=== PATIENT | female | born 1975 | race Caucasian/White ===

== ENCOUNTER 2019-05-16 08:53 | Emergency (ER) | payer MEDICARE, SELFPAY ==
[2019-05-16 08:54] VITALS: BP 119/77; PULSE 105; RESP 18; TEMP 38.9; O2SAT 91; BMI 28.3
--- NOTE | 2019-05-16 09:08 | ED.VISSUMM ---
- ER Visit Summary Date of Service: 05/16/19 Chief Complaint: [Flu symptoms] History of Present Illness: The patient is a 44 F [presents the emergency department with symptoms that started yesterday. Patient complains of a sore throat, cough, fever, and body aches. Patient complains of a headache. Patient states that she is in school and lots of her classmates have been ill and been wearing masks. Patient also states that she has this small boil in her left upper thigh that she is had for several weeks that opened up and drained and then started increasing in size again but now it starting to get better again and she has less pain. Patient's fever at home up to 102. No urinary symptoms. Cough is mostly nonproductive although occasionally she will bring up some cox phlegm. Patient is a smoker.] Physical Examination: [HEENT-PERRLA, EOMI. Cranial nerves II through XII grossly intact. TMs clear. Mucous membranes moist. No adenopathy. Cardiovascular-regular rate and rhythm without murmur or ectopy Lungs-clear to auscultation, chest wall stable without crepitus or subcu emphysema Abdomen-normoactive bowel sounds, soft, nontender, no rebound or rigidity, no peritoneal signs. Extremities-intact ?4, normal range of motion, normal pulses, atraumatic. Left groin-there is a small soft tissue swelling measuring approximately 1 cm in diameter without any fluctuance. There is no erythema or cellulitis noted. Minimal discomfort on palpation. I feel this is a resolving soft tissue abscess.] Test Results: [None indicated] Emergency Department Course and Treatment: [Patient was treated with ibuprofen and Tamiflu.] Treatment Plan: [We will be treated with Tamiflu and Tessalon Perles. Patient advised to use ibuprofen or Tylenol for discomfort.] Disposition: [Discharged home in stable condition] Impression: [Influenza] This note was generated with [employer] dictation software. It may contain incorrect words, spelling, and punctuation that were not noted in review of the chart prior to signing ED Disposition - Plan for ED Patient: Referrals: Nilson Frazier MD [Primary Care Provider] -
--- NOTE | 2019-05-16 09:10 | ED.DEP ---
ED Disposition - Plan for ED Patient: Instructions: Influenza Prescriptions: Oseltamivir Phosphate [Tamiflu] 75 mg PO BID #10 cap Prescription Printed Benzonatate [Tessalon Perle] 200 mg PO TID PRN PRN #20 cap PRN Reason: Cough Prescription Printed Referrals: Nilson Frazier MD [Primary Care Provider] - 5-7 Days
[2019-05-16] MEDS: Oseltamivir Phosphate 75 MG Capsule PO (09:22)
[2019-05-16] MEDS: Ibuprofen 400 MG Tablet 800 MG PO (09:22)
[2019-05-16 09:26] VITALS: PULSE 105; RESP 17; TEMP 39.2
== END 2019-05-16 09:29 | disposition home or self-care (01) ==
LOC: ED 09:12
PROVIDERS: Emergency Provider Emergency Medicine; PCP Family Medicine
DX: J11.1 Influenza due to unidentified influenza virus with other respiratory manifestations (principal); F17.200 Nicotine dependence, unspecified, uncomplicated
CPT/HCPCS: 99283

== ENCOUNTER 2021-02-19 15:45 | Inpatient (IN) | payer MEDICARE, SELFPAY ==
[2021-02-19] VITALS (12 sets, daily range): BP systolic 95–129; BP diastolic 60–94; PULSE 93–113; RESP 14–26; TEMP 36.1–36.8; O2SAT 77–98; BMI 30.4
--- NOTE | 2021-02-19 16:25 | RAD_ITS ---
STUDY: X-RAY CHEST REASON FOR EXAM: Female, 45 years old. cough sob TECHNIQUE: Frontal portable view of the chest COMPARISON: 16 March 2017 FINDINGS: The lungs are clear and expanded. There is no demonstrated pleural abnormality. Normal size heart. Normal mediastinum and deonna. Normal visualized pulmonary arteries. Normal visualized aortic arch and descending thoracic aorta. Normal visualized thoracic spine. Normal visualized ribs, clavicles, and shoulders. There is no demonstrated abnormality of the visualized soft tissue structures of the upper abdomen. RAD/Chest 1 View (Portable) IMPRESSION: Normal x-ray examination of the chest. Electronically Signed: Javon Vargas MD at 16:49 EST Tel , Service support ,
--- NOTE | 2021-02-19 16:42 | EX.ED.VIS.UR ---
HPI HPI - URI History of Present Illness Chief Complaint: Cough Informant: patient Onset/Context/Timing Onset: Days (2-3) Context: Gradual Onset Timing: Continuous Quality: Nonproductive cough Location: Chest Current Severity: Moderate Maximum Severity: Moderate Worsened by: - (Exertion, coughing) Relieved by: - (Rest) Associated Symptoms Associated Symptoms: Positive for Nasal Congestion, Myalgias, Shortness of Breath (Mild due to wheezing with exertion) and Nonproductive cough; Negative for Headache, Nausea, Vomiting, Diarrhea, Chest Pain and Hemoptysis Narrative Narrative: Patient having chills but no fevers, cough for the last couple days feels like she has bronchitis. She is a smoker. 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 She was vaccinated against Covid with the Moderna vaccines, last of the 2 injections was this past summer she thinks in August, she has not had a booster. No contact with anyone with Covid that she knows of. She denies any significant dyspnea, but on the way back to her room from triage here in the emergency department, her oxygen saturations went down to 73%. She denies any history of DVT or PE or leg pain or swelling recently. No recent travel, immobilization, hospitalization, surgery. ROS [facility] ED Constitutional Constitutional ED: Reports body ache(s) and chills; Denies fever(s) or headache(s) Eyes Eyes: Denies change in vision or diplopia ENT ENT ED: Reports nasal congestion; Denies rhinorrhea or sore throat Cardiovascular Cardiovascular: Denies chest pain or palpitations Respiratory/Chest Respiratory/Chest: Reports cough and dyspnea on exertion Gastrointestinal Gastrointestinal: Denies abdominal pain, diarrhea, nausea or vomiting Genitourinary Genitourinary ED: Denies dysuria or hematuria Musculoskeletal Musculoskeletal: Denies back pain or neck pain Integumentary Denies abscess or rash Neurologic Neurologic: Denies headache(s), paresthesias or weakness Psychiatric Psychiatric: Denies anxiety or suicidal thoughts PFSH PFSH Medical History Depression H. pylori infection Smoker Home Medications albuterol sulfate 1 - 2 puff INHALATION Q4H PRN PRN #1 inhaler 03/16/17 [Rx Last Taken Unknown] gabapentin 1 tab PO BID 03/16/17 [History Last Taken Unknown] doxycycline monohydrate 100 mg PO BID 02/19/21 [History Last Taken Unknown] methadone 80 mg PO DAILY 02/19/21 [History Last Taken Unknown] metronidazole 500 mg PO 4X/DAY 02/19/21 [History Last Taken Unknown] pantoprazole PO 02/19/21 [History Last Taken Unknown] Allergy/AdvReac Type Severity Reaction Status Date / Time citalopram hydrobromide AdvReac Vomiting Verified 02/19/21 15:49 [From Celexa] nitrofurantoin AdvReac Diarrhea Verified 02/19/21 15:49 [From Macrobid] nitrofurantoin AdvReac Diarrhea Verified 02/19/21 15:49 macrocrystalline [From Macrobid] sertraline HCl [From Zoloft] AdvReac Vomiting Verified 02/19/21 15:49 sulfamethoxazole AdvReac Diarrhea Verified 02/19/21 15:49 [From Bactrim] trimethoprim [From Bactrim] AdvReac Diarrhea Verified 02/19/21 15:49 Surgical History History of cholecystectomy Social History Smoking Status: Current every day smoker tobacco type: cigarettes EXAM Physical Exam Const Vital Signs: 02/19/21 15:46 02/19/21 16:03 02/19/21 16:12 Temperature 98.3 F 98.3 F Temperature Source Temporal Temporal Pulse Rate 99 93 Respiratory Rate 18 17 Respiratory Effort Non-Labored Short of Breath Respiratory Depth Normal Respiratory Pattern Normal Blood Pressure 118/77 95/65 Blood Pressure Mean 90 75 Pulse Ox 84 97 96 Oxygen Delivery Method Room Air Nasal Cannula Nasal Cannula Oxygen Flow Rate (L/min) 3 3 02/19/21 17:00 02/19/21 17:19 02/19/21 18:25 Temperature 96.9 F L Temperature Source Temporal Pulse Rate 96 102 H 98 Respiratory Rate 16 22 H 20 H Respiratory Effort Respiratory Depth Respiratory Pattern Blood Pressure 119/76 102/60 Blood Pressure Mean 90 74 Pulse Ox 93 97 94 Oxygen Delivery Method Nasal Cannula Nasal Cannula Nasal Cannula Oxygen Flow Rate (L/min) 3 3 3 02/19/21 20:14 02/19/21 20:42 02/19/21 21:01 Temperature 98.3 F Temperature Source Temporal Pulse Rate 94 111 H 113 H Respiratory Rate 14 20 H 26 H Respiratory Effort Respiratory Depth Respiratory Pattern Normal Blood Pressure 129/94 H 101/76 Blood Pressure Mean 105 84 Pulse Ox 85 91 Oxygen Delivery Method Nasal Cannula Nasal Cannula Oxygen Flow Rate (L/min) 3 2 Positive well nourished and well developed Constitutional Narrative: Well-appearing, no distress, conversive in full sentences General Appearance ED: well developed and NAD HEENT Reports moist mucous membranes normocephalic and atraumatic Eyes PERRL and EOMs intact bilaterally Neck full ROM and supple Resp normal respiratory effort Resp Narrative: Expiratory wheezing throughout, no other adventitious breath sounds. Cardio regular rate, regular rhythm and no murmurs Rate: Negative for tachycardic GI non-tender and non-distended Auscultation: normoactive bowel sounds Palpation: soft Back/Spine no CVA tenderness General Back: other FROM Extremity normal to inspection and no calf tenderness General Extremety ED: Negative for edema, pulses abnormal or tenderness General Extremity: Negative for edema or pulses abnormal Neuro oriented x3, CN's II-XII intact bilaterally and no sensory deficits noted Sensorium / Orientation: awake and alert Motor Exam: strength 5/5 throughout Skin no rashes or lesions noted and no wounds MDM MDM MDM Narrative Medical decision making narrative: Initially obtained a Covid swab and a chest x-ray, both of which are normal/negative. However after duo nebulizer treatment taking the patient off of oxygen, she still desats and actually with walking at 1 point she was 56% on room air. When she got back to the room she was in the 80s, and required oxygen to get her back into the 90s, 4 L. She indicates this has been an issue before, especially when she had her EGD diagnosing H. pylori infection for which she has been on antibiotics for the past month or 2 and Pepto-Bismol. She still smokes and has never been referred to a revenue field auditor. I performed more of a work-up, including a D-dimer, labs, cardiac work-up, all of which was normal except for the D-dimer so she underwent CT angiography of the chest, the results are below essentially unremarkable except for some scarring/atelectasis and no pneumonia or pulmonary embolus. I then gave her a stacked course of albuterol, she was resting on room air at 79%. It took 3 L to get her above 90% without ambulation. I advised the patient to stay in the hospital, I cannot send her home on oxygen from the emergency department, she was reluctant but amenable. I question whether she could have undiagnosed COPD. Started her on steroids with Solu-Medrol IV and discussed with hospitalist. Lab Data Attestation: I reviewed the patient's lab results. Labs: Laboratory Results - last 24 hr 02/19/21 02/19/21 02/19/21 18:05 18:05 18:05 WBC 6.4 RBC 4.71 Hgb 14.7 Hct 44.7 MCV 94.9 MCH 31.2 MCHC 32.9 RDW Std Deviation 46.8 H RDW Coeff of Lb 13.3 Plt Count 155 MPV 9.8 Immature Gran % (Auto) 0.300 Neut % (Auto) 80.0 H Lymph % (Auto) 13.1 L [place] % (Auto) 6.3 Eos % (Auto) 0.0 Baso % (Auto) 0.3 Absolute Neuts (auto) 5.1 Absolute Lymphs (auto) 0.83 Nucleated RBC % 0 D-Dimer Quant (PE/DVT) Cancelled Sodium Potassium Chloride Carbon Dioxide Anion Gap BUN Creatinine Estim Creat Clear Calc Est GFR (MDRD) Af Amer Est GFR (MDRD) Non-Af BUN/Creatinine Ratio Glucose Calcium Troponin I High Sens B-Natriuretic Peptide 84.3 02/19/21 02/19/21 18:05 19:14 WBC RBC Hgb Hct MCV MCH MCHC RDW Std Deviation RDW Coeff of Lb Plt Count MPV Immature Gran % (Auto) Neut % (Auto) Lymph % (Auto) [place] % (Auto) Eos % (Auto) Baso % (Auto) Absolute Neuts (auto) Absolute Lymphs (auto) Nucleated RBC % D-Dimer Quant (PE/DVT) 0.59 H* Sodium 138 Potassium 4.2 Chloride 101 Carbon Dioxide 33.0 H Anion Gap 4 L BUN 6 L Creatinine 0.87 Estim Creat Clear Calc 60.32 Est GFR (MDRD) Af Amer 90 Est GFR (MDRD) Non-Af 74 BUN/Creatinine Ratio 6.9 L Glucose 102 Calcium 8.9 Troponin I High Sens 5 B-Natriuretic Peptide Radiography Diagnostic Testing: Clinical Impression(s) from Imaging Studies Chest X-Ray 02/19/21 16:25 IMPRESSION: Normal x-ray examination of the chest. Electronically Signed: Javon Vargas MD at 16:49 EST Tel , Service support , Chest CTA 02/19/21 18:46 IMPRESSION: No demonstrated pulmonary embolism or arterial dissection. Probable peripheral scarring/atelectasis of the right middle lobe and lingular segment. Electronically Signed: Candido Lopez DO at 19:38 EST Tel [phone], Service support , Discharge Plan Dx/Rx/DC Orders Clinical Impression: Acute bronchitis, Hypoxemia Disposition Disposition: Acute Care Hospital [facility] Discharge Date/Time: 02/19/21 22:23
[2021-02-19] MEDS: Ipratropium/Albuterol Sulfate 3 ML AMPUL.NEB INHALATION (17:17)
[2021-02-19 18:25] LABS: Absolute Lymphocyte Count 0.83 X10^3/uL (0.83-4.51); Absolute Neutrophil Count 5.1 X10^3/uL (2.0-7.7); Basophil# 0.02 X10^3/uL; Basophil% 0.3 % (0-1); Hematocrit 44.7 % (37-47); Hemoglobin 14.7 g/dL (12.0-15.0); Lymphocyte # 0.83 X10^3/ul (0.83-4.51); Lymphocyte % 13.1 % (19-41); Mean Corp Hgb Conc 32.9 g/dL (32-36); Mean Corpuscular Hgb 31.2 pg (27.0-32.0); Mean Corpuscular Volume 94.9 fL (81-99); Mean Platelet Vol. 9.8 fl (6.2-12.0); Monocyte% 6.3 % (0-10); NRBC Flagged by Analyzer 0 % (0-5); Neutrophil # 5.08 X10^3/uL (2.7-7.7); Platelet Count 155 K/mm3 (150-450); RBC Distribution Width CV 13.3 % (11.6-14.6); RBC Distribution Width SD 46.8 fl (35.1-43.9); Red Blood Count 4.71 M/mm3 (4.2-5.4); White Blood Count 6.4 K/mm3 (4.4-11.0)
[2021-02-19] MEDS: 0.9% Normal Saline 1,000 ML 999 ML IV (18:26)
[2021-02-19 18:36] LABS: Anion Gap 4 (5-15); BUN 6 mg/dL (7-18); BUN/Creat Ratio 6.9 RATIO (10-20); Calcium,Total 8.9 mg/dL (8.5-10.1); Chloride 101 mmol/L (98-107); Creatinine, Serum 0.87 mg/dL (0.55-1.02); EST Glomerular Filtration Rate 74 mL/min (>60); Est Glom Filt Rate - Afr Amer 90 mL/min (>60); Estimated Creatinine Clearance 60.32 ml/min; Glucose 102 mg/dL (74-106); Potassium 4.2 mmol/L (3.5-5.1); Sodium Level 138 mmol/L (136-145); Troponin-I HS 5 pg/mL (3.0-54.0)
--- NOTE | 2021-02-19 18:46 | CT_ITS ---
STUDY: CTA CHEST REASON FOR EXAM: Female, 45 years old. Cough, sob, hypoxemia, elevated d-dimer -- wait for labs please RADIATION DOSAGE (If Supplied By Facility): CTDIvol = ( 13.56 ) mGy, DLP = ( 417.91 ) mGycm TECHNIQUE: The examination was performed with the intravenous administration of IV 75mL Isovue-370. Post-processing of the angiographic images was performed, with multiplanar reformation and 3D reconstruction. Individualized dose optimization techniques were used for this CT. COMPARISON: None. FINDINGS: Normal enhancement of the main pulmonary artery and right and left pulmonary arteries. Normal enhancement of the bilateral peripheral pulmonary arteries. There is no demonstrated pulmonary embolism. Normal thoracic aorta and visualized great vessels. There is no demonstrated aortic dissection. Normal heart and pericardium. Normal mediastinum. Normal hilar regions. Normal visualized trachea and bronchi. The lungs are well expanded. Probable peripheral scarring/atelectasis of the right middle lobe and lingular segment. Normal pleura. Normal chest wall structures. Normal osseous structures. Normal visualized upper abdomen. CT/CTA Chest W/WO Contrast IMPRESSION: No demonstrated pulmonary embolism or arterial dissection. Probable peripheral scarring/atelectasis of the right middle lobe and lingular segment. Electronically Signed: Candido Lopez DO at 19:38 EST Tel [phone], Service support ,
[2021-02-19 19:05] LABS: BNP,B-Type NATRIURETIC PEPTIDE 84.3 pg/mL (0-100)
[2021-02-19 19:54] LABS: D-Dimer Quantitative (DVT/PE) 0.59 FEU/ug/m (0.27-0.49)
[2021-02-19] MEDS: Albuterol 2.5 MG/3 ML VIAL.NEB. INHALATION ×3 (20:11)
[2021-02-19] MEDS: MethylPREDNISolone 125 MG/2 ML Vial IV (20:28)
--- NOTE | 2021-02-19 20:44 | ED.RN ---
pulse ox 83%, placed on 2l nc,presently 90.
--- NOTE | 2021-02-19 22:14 | PCM.HP.STD ---
HPI - General General Date of Admission: 02/19/21 HPI Narrative AGUSTIN HEARN, is a 45 F with a significant history of H. pylori infection; IBS; depression; tobacco addiction on methadone; tobacco abuse who presents at the emergency department with a 2-day history of progressively worsening productive cough. The patient reports a temperature of 99.9-1 02 Fahrenheit. However she reported that the battery in the home temperature was low. She reports chills. At the emergency department with ambulation patient oxygen saturation at room air was about 59%. A decision was made for patient to stay at hospital [facility] Medical History Depression H. pylori infection Smoker Home Medications albuterol sulfate 1 - 2 puff INHALATION Q4H PRN PRN #1 inhaler 03/16/17 [Rx Last Taken Unknown] doxycycline monohydrate 100 mg PO BID 02/19/21 [History Last Taken Unknown] methadone 80 mg PO DAILY 02/19/21 [History Last Taken Unknown] metronidazole 500 mg PO 4X/DAY 02/19/21 [History Last Taken Unknown] pantoprazole PO 02/19/21 [History Last Taken Unknown] Allergy/AdvReac Type Severity Reaction Status Date / Time citalopram hydrobromide AdvReac Vomiting Verified 02/19/21 15:49 [From Celexa] nitrofurantoin AdvReac Diarrhea Verified 02/19/21 15:49 [From Macrobid] nitrofurantoin AdvReac Diarrhea Verified 02/19/21 15:49 macrocrystalline [From Macrobid] sertraline HCl [From Zoloft] AdvReac Vomiting Verified 02/19/21 15:49 sulfamethoxazole AdvReac Diarrhea Verified 02/19/21 15:49 [From Bactrim] trimethoprim [From Bactrim] AdvReac Diarrhea Verified 02/19/21 15:49 Family History (Updated 02/19/21 @ 22:[address] Micah Smith MD) Other Heart disease Surgical History (Updated 02/19/21 @ 22:[address] Micah Smith MD) H/O shoulder surgery History of cholecystectomy History of surgery on arm Social History Smoking Status: Current every day smoker tobacco type: cigarettes ROS ROS Narrative Constitutional: Reports fever and chills. Reports anorexia. Denies change in weight. Eyes: Denies blurry vision, change in eye color, change in vision, discharge from eye(s), double vision, erythema, eye pain, loss of vision or other HEENT: Denies abnormal hearing, dysphagia, ear pain, epistaxis, headache(s), hearing loss, nasal congestion, nasal discharge, post nasal drip, sinus pressure, sore throat or other Cardiovascular: Denies chest pain or palpitations. Respiratory/Chest: Reports cough. Reports phlegm production. Denies shortness of breath. Gastrointestinal: Denies abdominal pain, coffee ground emesis, constipation, diarrhea, dyspepsia, hematemesis, hematochezia, loose stools, melena, nausea, vomiting or other Genitourinary: Denies burning urination, difficulty urinating, dysuria, hematuria, nocturia, urinary frequency, urinary hesitancy, urinary incontinence, urinary urgency or other Musculoskeletal: Denies arthralgias, back pain, joint pain, joint stiffness, joint swelling, myalgias, neck pain or other Neurologic: Denies abnormal gait, abnormal speech, confusion, disequilibrium, dizziness, focal weakness, headache(s), numbness, paresthesias, seizure-like activity, seizures, syncope, tingling, tremor(s) or other Psychiatric: Denies anxiety, depression, homicidal ideation, suicidal ideation or other Endocrinology: Denies change in body appearance, cold intolerance, excessive sweating, heat intolerance, polydipsia, polyuria or other Hematologic/Lymphatic: Denies anemia, easy bleeding, easy bruising, lymphadenopathy or other Integumentary: Denies rashes Allergic/Immunologic: Denies rhinitis, hives, eczema, asthma or other Vital Signs Vital Signs Vital Signs: 02/19/21 15:46 02/19/21 16:03 02/19/21 16:12 Temperature 98.3 F 98.3 F Temperature Source Temporal Temporal Pulse Rate 99 93 Respiratory Rate 18 17 Respiratory Effort Non-Labored Short of Breath Respiratory Depth Normal Respiratory Pattern Normal Blood Pressure 118/77 95/65 Blood Pressure Mean 90 75 Pulse Ox 84 97 96 Oxygen Delivery Method Room Air Nasal Cannula Nasal Cannula Oxygen Flow Rate (L/min) 3 3 02/19/21 17:00 02/19/21 17:19 02/19/21 18:25 Temperature 96.9 F L Temperature Source Temporal Pulse Rate 96 102 H 98 Respiratory Rate 16 22 H 20 H Respiratory Effort Respiratory Depth Respiratory Pattern Blood Pressure 119/76 102/60 Blood Pressure Mean 90 74 Pulse Ox 93 97 94 Oxygen Delivery Method Nasal Cannula Nasal Cannula Nasal Cannula Oxygen Flow Rate (L/min) 3 3 3 02/19/21 20:14 02/19/21 20:42 02/19/21 21:01 Temperature 98.3 F Temperature Source Temporal Pulse Rate 94 111 H 113 H Respiratory Rate 14 20 H 26 H Respiratory Effort Respiratory Depth Respiratory Pattern Normal Blood Pressure 129/94 H 101/76 Blood Pressure Mean 105 84 Pulse Ox 85 91 Oxygen Delivery Method Nasal Cannula Nasal Cannula Oxygen Flow Rate (L/min) 3 2 Weight Weight: 73.028 kg Body Mass Index (BMI) 30.4 Physical Exam Narrative Physical exam: General: Well-nourished, well-developed. Head: Normocephalic, atraumatic, no tenderness Eyes: PERRLA, EOMI ENT, no trauma, moist mucous membranes, no rhinorrhea Neck: Nontender, full range of motion, no spinal tenderness, deformities, step-off CVS: Regular rate and rhythm. S1-S2 present. No murmur, gallop or rub. Respiratory : Wheezes. Chest wall nontender. Abdomen: Soft, nontender, nondistended, normal bowel sounds, no masses : Deferred Back: Nontender, no CVA tenderness, no midline spinal tenderness, deformities, step-offs Extremities: Nontender full range of motion, no trauma Skin: Normal color, no trauma, abrasions Neuro: Alert, oriented, cranial nerves II through XII grossly intact. Psychiatry: Normal mood. Normal affect. Not depressed. Not anxious. Results Lab / Micro Data Result Diagrams: 02/19/21 18:05 02/19/21 18:05 Labs: Laboratory Results - last 24 hr 02/19/21 18:05: D-Dimer Quant (PE/DVT) Cancelled 02/19/21 18:05: B-Natriuretic Peptide 84.3 02/19/21 18:05: WBC 6.4, RBC 4.71, Hgb 14.7, Hct 44.7, MCV 94.9, MCH 31.2, MCHC 32.9, RDW Std Deviation 46.8 H, RDW Coeff of Lb 13.3, Plt Count 155, MPV 9.8, Immature Gran % (Auto) 0.300, Neut % (Auto) 80.0 H, Lymph % (Auto) 13.1 L, [place] % (Auto) 6.3, Eos % (Auto) 0.0, Baso % (Auto) 0.3, Absolute Neuts (auto) 5.1, Absolute Lymphs (auto) 0.83, Nucleated RBC % 0 02/19/21 18:05: Sodium 138, Potassium 4.2, Chloride 101, Carbon Dioxide 33.0 H, Anion Gap 4 L, BUN 6 L, Creatinine 0.87, Estim Creat Clear Calc 60.32, Est GFR (MDRD) Af Amer 90, Est GFR (MDRD) Non-Af 74, BUN/Creatinine Ratio 6.9 L, Glucose 102, Calcium 8.9, Troponin I High Sens 5 02/19/21 19:14: D-Dimer Quant (PE/DVT) 0.59 H* Micro: Microbiology 02/19/21 16:13 Interface Orders SARS-CoV-2 Antigen (Rapid) - Final Radiology Impression Chest X-Ray 02/19/21 16:25 IMPRESSION: Normal x-ray examination of the chest. Electronically Signed: Javon Vargas MD at 16:49 EST Tel , Service support , Chest CTA 02/19/21 18:46 IMPRESSION: No demonstrated pulmonary embolism or arterial dissection. Probable peripheral scarring/atelectasis of the right middle lobe and lingular segment. Electronically Signed: Candido Lopez DO at 19:38 EST Tel [phone], Service support , Assessment & Plan Assessment/Plan (1) Acute hypoxemic respiratory failure: (2) Acute bronchitis: PLAN: Acute hypoxemic respiratory failure likely secondary to acute bronchitis. Chest x-ray was independently interpreted and agree radiologist interpretation above. Radiology impression of chest CTA is as above. Received Solu-Medrol at the emergency department and continued. Received DuoNeb at the emergency department and continue [id number]. Chest x-ray and chest CTA does not look like Covid but without definite answer will order a Covid PCR. Rapid Covid antigen was negative. We will get stat influenza screen. Placed on nasal cannula oxygen and continued. Review of CBC showed normal white counts but with neutrophilia and lymphopenia. D-dimer was elevated chest CTA is as above. CBC showed a bicarbonate of 33. Likely patient has a history of mild CO2 retention. BNP is within normal limit. H. pylori infection Continue doxycycline and metronidazole Pantoprazole continued History of drug abuse Reportedly she is in their recovery program or counseling. Reportedly she drives from with diabetes to [place] to take up 110 mg of liquid methadone during weekdays. She receives some methadone for take home on weekends.. Obtain records from methadone clinic and dose accordingly. DVT prophylaxis: Subcutaneous Lovenox ordered Charges/Coding Visit Charges Inpatient E&M: 50089 Init Hosp L2
[2021-02-19] MEDS: guaiFENesin 1,200 MG Tablet 1200 MG PO (23:22)
[2021-02-20] VITALS (10 sets, daily range): BP systolic 103–123; BP diastolic 53–65; PULSE 92–107; RESP 16–20; TEMP 36.2–36.9; O2SAT 86–98
--- NOTE | 2021-02-20 00:04 | PCS.PANDOC ---
PANDEMIC DOCUMENTATION INITIATED: Date: 11/07/2020 Time: 190
[2021-02-20] MEDS: Fluticasone 0.05% 1 SPRAY NASAL.SRY 2 SPRAY NASAL (05:26)
[2021-02-20] MEDS: 0.9% Saline Lock 10 ML Syringe IV ×3 (05:29→20:43)
[2021-02-20 06:50] LABS: Absolute Lymphocyte Count 0.71 X10^3/uL (0.83-4.51); Absolute Neutrophil Count 5.5 X10^3/uL (2.0-7.7); Basophil# 0.01 X10^3/uL; Basophil% 0.2 % (0-1); Hematocrit 42.6 % (37-47); Hemoglobin 13.9 g/dL (12.0-15.0); Lymphocyte # 0.71 X10^3/ul (0.83-4.51); Lymphocyte % 11.1 % (19-41); Mean Corp Hgb Conc 32.6 g/dL (32-36); Mean Corpuscular Hgb 30.8 pg (27.0-32.0); Mean Corpuscular Volume 94.5 fL (81-99); Mean Platelet Vol. 9.9 fl (6.2-12.0); Monocyte# 0.13 X10^3/uL; NRBC Flagged by Analyzer 0 % (0-5); Neutrophil # 5.52 X10^3/uL (2.7-7.7); Neutrophil % 86.4 % (47-70); Platelet Count 170 K/mm3 (150-450); RBC Distribution Width CV 13.4 % (11.6-14.6); RBC Distribution Width SD 46.4 fl (35.1-43.9); Red Blood Count 4.51 M/mm3 (4.2-5.4); White Blood Count 6.4 K/mm3 (4.4-11.0)
[2021-02-20] MEDS: Ipratropium/Albuterol Sulfate 3 ML AMPUL.NEB INHALATION ×4 (07:06→20:56)
[2021-02-20 07:17] LABS: Anion Gap 8 (5-15); BUN 9 mg/dL (7-18); BUN/Creat Ratio 11.6 RATIO (10-20); Calcium,Total 9.1 mg/dL (8.5-10.1); Chloride 101 mmol/L (98-107); Creatinine, Serum 0.78 mg/dL (0.55-1.02); EST Glomerular Filtration Rate 84 mL/min (>60); Est Glom Filt Rate - Afr Amer 102 mL/min (>60); Estimated Creatinine Clearance 67.28 ml/min; Glucose 146 mg/dL (74-106); Potassium 3.7 mmol/L (3.5-5.1); Sodium Level 138 mmol/L (136-145)
[2021-02-20] MEDS: Enoxaparin 40 MG/0.4 ML Syringe SC (08:44)
[2021-02-20] MEDS: metroNIDAZOLE 500 MG Tablet PO ×4 (08:44→22:54)
[2021-02-20] MEDS: guaiFENesin 1,200 MG Tablet 1200 MG PO ×2 (08:44→20:41)
[2021-02-20] MEDS: Doxycycline 100 MG CAPSULE PO ×2 (08:44→20:41)
[2021-02-20] MEDS: Pantoprazole Sodium 40 MG Tablet PO (08:44)
[2021-02-20 08:51] LABS: Procalcitonin 0.05 ng/mL (0.00-0.09)
--- NOTE | 2021-02-20 10:57 | CASEMGMT ---
ROBBIN HIGH assessment: Face to Face with patient for initial transition planning/care coordination assessment. ROBBIN HIGH introduced self and role at [facility], pt voices understanding and consents to assessment. Pt is sitting up in bed in no distress on 5L nc. Pt is A/Ox4 and answers all questions appropriately. Care providers, pharmacy, and demographics verified/updated. Presentation: Cough, chest congestion, fever Admission dx: Cough PCP: Karin Specialists: MARY Blanco Preferred Pharmacy: [facility] Insurance: [employer] Prescription Benefit: [employer] Living Will/HPOA: Pt does not have LW/HPOA set up but states has the paperwork at home. LNOK: Susana Randolph, mother; Shahid Bryant, father Living Arrangements: Pt lives alone in apartment with 8 steps and states no concerns at home. Pt states is independent with ADL's. Transportation: Pt states drives self and states no transportation concerns. DME/HHC: Pt states no current DME or need for any further DME. Pt states no preference for DME company, if qualifies for home oxygen at discharge. Pt states has had HHC in the past but has not been to SNF. Pt states no concerns with going home at time of discharge. Pt is on disability. Pt states smokes 1/2 pack cigarettes daily but does not drink ETOH. Pt states no further concerns/needs. CM to follow for home oxygen testing and any further discharge planning/needs. Advised pt to ask for CM if any further questions/concerns/needs arise, voices understanding. Pt Goal: Home Plan[place]BIN HIGH
[2021-02-20] MEDS: Methadone 10 MG Tablet 110 MG PO (11:48)
--- NOTE | 2021-02-20 11:52 | PCM.PN.HOSP ---
Documented by User: Gerardo CANAS 02/20/21 12:01 Subjective Subjective Patient is a 45-year-old female comfortably resting in a chair, alert and orient x3. Patient reports that her shortness of breath has improved from admission, however still reports yellow productive cough. Denies development of any new symptoms overnight. Does not appear in acute distress. Objective Data Objective Data Vital Signs: Vital Signs Temp Pulse Resp BP Pulse Ox 98.4 F 96 20 H 123/62 H 91 02/20/21 06:19 02/20/21 11:05 02/20/21 11:05 02/20/21 06:19 02/20/21 06:58 Oxygen Flow Rate (L/min) 5 Oxygen Delivery Method Nasal Cannula Weight: 159 lb 2.78 oz Body Mass Index (BMI) 30.0 Intake & Output: Intake and Output for Last 24 Hours 02/18/21 02/19/21 02/20/21 23:59 23:59 23:59 Intake Total 1000 / 1120 760 / 760 Balance 1000 / 1120 760 / 760 Lab / Micro Data Result Diagrams: 02/20/21 05:55 02/20/21 05:55 Labs: Laboratory Results - last 24 hr 02/19/21 18:05: D-Dimer Quant (PE/DVT) Cancelled 02/19/21 18:05: B-Natriuretic Peptide 84.3 02/19/21 18:05: WBC 6.4, RBC 4.71, Hgb 14.7, Hct 44.7, MCV 94.9, MCH 31.2, MCHC 32.9, RDW Std Deviation 46.8 H, RDW Coeff of Lb 13.3, Plt Count 155, MPV 9.8, Immature Gran % (Auto) 0.300, Neut % (Auto) 80.0 H, Lymph % (Auto) 13.1 L, [place] % (Auto) 6.3, Eos % (Auto) 0.0, Baso % (Auto) 0.3, Absolute Neuts (auto) 5.1, Absolute Lymphs (auto) 0.83, Nucleated RBC % 0 02/19/21 18:05: Sodium 138, Potassium 4.2, Chloride 101, Carbon Dioxide 33.0 H, Anion Gap 4 L, BUN 6 L, Creatinine 0.87, Estim Creat Clear Calc 60.32, Est GFR (MDRD) Af Amer 90, Est GFR (MDRD) Non-Af 74, BUN/Creatinine Ratio 6.9 L, Glucose 102, Calcium 8.9, Troponin I High Sens 5 02/19/21 19:14: D-Dimer Quant (PE/DVT) 0.59 H* 02/19/21 23:15: COVID-19 (BECKY) Not Detected 02/20/21 05:55: WBC 6.4, RBC 4.51, Hgb 13.9, Hct 42.6, MCV 94.5, MCH 30.8, MCHC 32.6, RDW Std Deviation 46.4 H, RDW Coeff of Lb 13.4, Plt Count 170, MPV 9.9, Immature Gran % (Auto) 0.300, Neut % (Auto) 86.4 H, Lymph % (Auto) 11.1 L, [place] % (Auto) 2.0, Eos % (Auto) 0.0, Baso % (Auto) 0.2, Absolute Neuts (auto) 5.5, Absolute Lymphs (auto) 0.71 L, Nucleated RBC % 0 02/20/21 05:55: Sodium 138, Potassium 3.7, Chloride 101, Carbon Dioxide 29.0, Anion Gap 8, BUN 9, Creatinine 0.78, Estim Creat Clear Calc 67.28, Est GFR (MDRD) Af Amer 102, Est GFR (MDRD) Non-Af 84, BUN/Creatinine Ratio 11.6, Glucose 146 H, Calcium 9.1 02/20/21 07:40: Procalcitonin 0.05 Micro: Microbiology 02/20/21 07:43 Mucosa - Nasopharyngeal Respiratory Panel (PCR) - Final Human [place] 02/19/21 23:15 Mucosa - Nose Influenza Types A,B Direct FA (GEGE) - Final 02/19/21 16:13 Interface Orders SARS-CoV-2 Antigen (Rapid) - Final Radiography Diagnostic Testing: Radiology Impression Chest X-Ray 02/19/21 16:25 IMPRESSION: Normal x-ray examination of the chest. Electronically Signed: Javon Vargas MD at 16:49 EST Tel , Service support , Chest CTA 02/19/21 18:46 IMPRESSION: No demonstrated pulmonary embolism or arterial dissection. Probable peripheral scarring/atelectasis of the right middle lobe and lingular segment. Electronically Signed: Candido Lopez DO at 19:38 EST Tel [phone], Service support , Physical Exam Const alert, oriented x3 and no apparent distress HEENT head/scalp atraumatic, moist oral mucous membranes and oropharynx normal Head and Scalp: normocephalic Eyes PERRL, EOMs intact bilaterally and conjunctivae normal Neck no lymphadenopathy, supple and no JVD Resp normal respiratory effort, no retractions, no use of accessory muscles and clear to auscultation bilaterally Resp Narrative: Currently satting 91% on 5 L via nasal cannula. Cardio regular rate, regular rhythm, no murmurs and no JVD GI normal to inspection, nondistended, normoactive bowel sounds, soft to palpation and non-tender Extremity normal to inspection, full ROM and no clubbing, cyanosis or edema Skin no rashes or lesions noted, no wounds and skin turgor normal Neuro CN's II-XII intact bilaterally Psych affect normal Assessment & Plan Assessment/Plan (1) Acute hypoxemic respiratory failure: (2) Acute bronchitis: (3) Hypoxemia: PLAN: Day 1 Discharge planning: Current plan is for patient to discharge home. 1) acute hypoxemic respiratory failure secondary to acute bronchitis Patient reports that her shortness of breath has improved from admission, although still reports productive cough with yellow sputum. Currently satting 91% on 5 L via nasal cannula, vital signs are otherwise stable and patient is afebrile. CBC does not demonstrate a leukocytosis and is unremarkable. Viral respiratory panel positive for human metapneumovirus. Rapid flu and Covid are both negative. Covid PCR is negative. Patient is also fully vaccinated against COVID-19. Plan; continue to monitor, Continue Solu-Medrol and breathing treatments, O2 per protocol. 2) H. pylori infection Continue on doxycycline and metronidazole. Pantoprazole continued. 3) history of drug abuse Receives methadone from methadone clinic. Request for records ordered admission. Continue methadone. DVT prophylaxis - Lovenox Patient seen by Gerardo Salmeron PA-C, under the supervision of Dr. Muhammad. Documented by User: Dr. Otilia Muhammad MD 02/20/21 15:12 Objective Data Lab / Micro Data Result Diagrams: 02/20/21 05:55 02/20/21 05:55
[2021-02-21 04:32] VITALS: BP 105/71; PULSE 89; RESP 18; TEMP 36.5; O2SAT 96
[2021-02-21 06:48] LABS: Absolute Lymphocyte Count 1.24 X10^3/uL (0.83-4.51); Absolute Neutrophil Count 17.1 X10^3/uL (2.0-7.7); Basophil# 0.04 X10^3/uL; Basophil% 0.2 % (0-1); Eosinophil# 0.19 X10^3/uL; Hematocrit 43.8 % (37-47); Hemoglobin 14.5 g/dL (12.0-15.0); Lymphocyte # 1.24 X10^3/ul (0.83-4.51); Lymphocyte % 6.3 % (19-41); Mean Corp Hgb Conc 33.1 g/dL (32-36); Mean Corpuscular Hgb 31.1 pg (27.0-32.0); Mean Platelet Vol. 10.1 fl (6.2-12.0); Monocyte# 0.81 X10^3/uL; Monocyte% 4.1 % (0-10); NRBC Flagged by Analyzer 0 % (0-5); Neutrophil # 17.14 X10^3/uL (2.7-7.7); Neutrophil % 87.7 % (47-70); Platelet Count 204 K/mm3 (150-450); RBC Distribution Width CV 13.7 % (11.6-14.6); RBC Distribution Width SD 46.7 fl (35.1-43.9); Red Blood Count 4.66 M/mm3 (4.2-5.4); White Blood Count 19.6 K/mm3 (4.4-11.0)
[2021-02-21 07:05] LABS: ALB/GLOB Ratio 0.8 RATIO (0.9-2.4); AST(SGOT) 18 U/L (15-37); Alanine Aminotransfer ALT/SGPT 21 U/L (13-56); Albumin, Serum 3.2 g/dL (3.2-5.0); Alkaline Phosphatase 91 U/L (45-117); Anion Gap 6 (5-15); BUN 17 mg/dL (7-18); BUN/Creat Ratio 20.5 RATIO (10-20); Calcium,Total 9.4 mg/dL (8.5-10.1); Chloride 101 mmol/L (98-107); Creatinine, Serum 0.83 mg/dL (0.55-1.02); EST Glomerular Filtration Rate 78 mL/min (>60); Est Glom Filt Rate - Afr Amer 95 mL/min (>60); Estimated Creatinine Clearance 63.23 ml/min; Glucose 122 mg/dL (74-106); Potassium 4.3 mmol/L (3.5-5.1); Protein, Total 7.2 g/dL (6.4-8.2); Sodium Level 138 mmol/L (136-145)
[2021-02-21 07:09] VITALS: PULSE 100; RESP 20; O2SAT 93
[2021-02-21] MEDS: Ipratropium/Albuterol Sulfate 3 ML AMPUL.NEB INHALATION ×2 (07:09→11:11)
[2021-02-21] MEDS: Methadone 10 MG Tablet 110 MG PO (08:19)
[2021-02-21] MEDS: Fluticasone 0.05% 1 SPRAY NASAL.SRY 2 SPRAY NASAL (08:20)
[2021-02-21] MEDS: Enoxaparin 40 MG/0.4 ML Syringe SC (08:25)
[2021-02-21] MEDS: guaiFENesin 1,200 MG Tablet 1200 MG PO (08:25)
[2021-02-21] MEDS: Doxycycline 100 MG CAPSULE PO (08:26)
[2021-02-21] MEDS: Pantoprazole Sodium 40 MG Tablet PO (08:26)
[2021-02-21] MEDS: metroNIDAZOLE 500 MG Tablet PO (08:26)
--- NOTE | 2021-02-21 08:41 | PCM.DC ---
Discharge Instructions Diet Discharge Diet: No restrictions Activity Discharge Activity: - (Advise only mild to moderate activity until resolution of acute viral bronchitis.) Dressing / Incision Call your doctor if you observe: Fever of 101 or Higher and Shortness of breath Follow Up Care Test Results: Test results from this visit will be discussed in further detail at your follow-up appointment, if applicable. Discharge Plan Admission Admit Date/Time: 02/19/21 22:05 Primary Reason for Your Visit: Acute Resp Failure, Acute Bronchitis, Acute Human Metapneumovirus Attending Provider: Otilia Muhammad Primary Care Provider: Nilson Frazier Instructions Additional Instructions / Restrictions: Acute Hypoxia secondary to Acute Viral Bronchitis with Human metapneumovirus: Please continue your steroid taper, aerosol treatments with as needed albuterol treatments, follow-up with your primary care physician and once you completely resolve recommend pulmonary function testing to assess for underlying lung disease, ie COPD. Please continue to use the nicotine patch for tobacco cessation treatment and de-escalate to the next patch level with your primary care physician. Discharge Orders/Prescriptions Prescriptions: New nicotine 14 mg/24 hr Patch 24 Hour 14 mg transdermal DAILY 14 Days Qty: 14 RF: 0 Mucus Relief ER 1,200 mg Tablet Extended Release 12hr 1,200 mg PO BID 14 Days Qty: 28 RF: 0 ipratropium-albuterol 0.5 mg-3 mg(2.5 mg base)/3 mL Solution For Nebulization 3 ml inhalation Q6H 14 Days Qty: 90 RF: 0 albuterol sulfate 2.5 mg /3 mL (0.083 %) Solution For Nebulization 2.5 mg inhalation Q2H PRN PRN (Reason: Shortness of Breath/Wheezing) 30 Days Qty: 90 RF: 0 prednisone 10 mg tablet See Rx Instructions .ROUTE .COMPLEX Qty: 30 RF: 0 (DME) nebulizers Misc See Rx Instructions .ROUTE .MEDSUPPLY Qty: 1 RF: 0 Continued albuterol sulfate 1 INHALER inhaler 1 - 2 puff INHALATION Q4H PRN PRN (Reason: Wheezing) Qty: 1 RF: 0 metronidazole 500 mg tablet 500 mg PO 4X/DAY RF: 0 doxycycline monohydrate 100 mg capsule 100 mg PO BID RF: 0 pantoprazole 40 mg tablet,delayed release (DR/EC) 40 mg PO DAILY RF: 0 methadone 10 mg/5 mL Solution 110 mg PO DAILY RF: 0 Referrals / Follow Up: Quinton Lipscomb MD [STAFF PHYSICIAN] - (Recommend follow-up evaluation with next open appointment.) Nilson Frazier MD [Primary Care Provider] - (Follow-up within 3-5 days to review admission.) Disposition Disposition (needs filled in before D/C Order can be placed): Home Health Service
[2021-02-21 08:55] VITALS: BP 136/69; PULSE 90; RESP 18; TEMP 36.8; O2SAT 93
[2021-02-21 08:59] VITALS: O2SAT 70
--- NOTE | 2021-02-21 09:00 | NURSING ---
pt oxygen dropped to 70% on room air with ambulation. Placed on 3L and remained above 90%, recovered to 93% after resting on 3L.
[2021-02-21 09:06] VITALS: O2SAT 70; O2SAT 90; O2SAT 93
--- NOTE | 2021-02-21 10:17 | CASEMGMT ---
Pt qualifies for 3L home oxygen w/ exertion and states no preference for DME company. Dr. Muhammad would also like pt set up with nebulizer and script faxed to [facility] for O2 and nebulizer at this time. Ludin SIEGEL CM
[2021-02-21 11:11] VITALS: PULSE 101; RESP 20
--- NOTE | 2021-02-21 12:17 | PHA.DC.MR ---
Pharmacy Service has performed discharge medication reconciliation for this patient. The patient's discharge medication list was reviewed for discrepancies and discrepancies were resolved. Home Medications albuterol sulfate 1 - 2 puff INHALATION Q4H PRN PRN #1 inhaler 03/16/17 doxycycline monohydrate 100 mg PO BID 02/19/21 metronidazole 500 mg PO 4X/DAY 02/19/21 pantoprazole 40 mg PO DAILY 02/19/21 methadone 110 mg PO DAILY 02/20/21 albuterol sulfate 2.5 mg INHALATION Q2H PRN PRN 30 Days #90 ml 02/21/21 guaifenesin [Mucus Relief ER] 1,200 mg PO BID 14 Days #28 tab 02/21/21 ipratropium-albuterol 3 ml INHALATION Q6H 14 Days #90 ml 02/21/21 nebulizers #1 ea 02/21/21 nicotine 14 mg TRANSDERMAL DAILY 14 Days #14 ea 02/21/21 prednisone See Rx Instructions .ROUTE .COMPLEX #30 tab 02/21/21
--- NOTE | 2021-02-21 16:05 | PCM.DC.SUM ---
Providers Date of Admission: 02/19/21 Primary Care Physician: Dr. Nilson Frazier MD Reason For Visit: ACUTE BRONCHITIS Diagnosis Discharge Diagnosis (1) Acute hypoxemic respiratory failure: Status: Acute Code(s): J96.01 - Acute respiratory failure with hypoxia (2) Acute bronchitis: Status: Acute Code(s): J20.9 - Acute bronchitis, unspecified (3) Hypoxemia: Status: Acute Code(s): R09.02 - Hypoxemia Medications at Discharge Home Medications albuterol sulfate 1 - 2 puff INHALATION Q4H PRN PRN #1 inhaler 03/16/17 doxycycline monohydrate 100 mg PO BID 02/19/21 metronidazole 500 mg PO 4X/DAY 02/19/21 pantoprazole 40 mg PO DAILY 02/19/21 methadone 110 mg PO DAILY 02/20/21 albuterol sulfate 2.5 mg INHALATION Q2H PRN PRN 30 Days #90 ml 02/21/21 guaifenesin [Mucus Relief ER] 1,200 mg PO BID 14 Days #28 tab 02/21/21 ipratropium-albuterol 3 ml INHALATION Q6H 14 Days #90 ml 02/21/21 nebulizers #1 ea 02/21/21 nicotine 14 mg TRANSDERMAL DAILY 14 Days #14 ea 02/21/21 prednisone See Rx Instructions .ROUTE .COMPLEX #30 tab 02/21/21 Hospital Course Operations None Procedures EKG Summary of Care Provided Minutes Spent on Discharge: 35 Hospital Course: DISCHARGE NOTE: Discharge Diagnoses: #1. Acute Hypoxic Respiratory Failure secondary to Acute Bronchitis secondary to Acute Human Metapneumovirus with suspected underlying COPD #2. Recent diagnosis H. pylori infection with GERD #3. History of polysubstance abuse on chronic methadone therapy #4. Obesity: Weight loss and lifestyle changes encouraged. #5. Tobacco Abuse Discharge Summary: The patient is a 45 y/o F w/ PMHx: GERD w/ recent diagnosis H. Pylori, Obesity, IBS, Depression, Addiction history on chronic methadone regimen, Tobacco use who presented to the [facility] ED on 02/19/21 w/ history of 2-day history of significantly worsening dyspnea, mildly productive cough as well as low-grade temperatures with chills however she does report that her heating in her home has not been appropriate with initial ED oxygen saturation on room air 59%. Patient admitted to PCU, maintain on oxygen with wean as able, continued on ATC duonebs, PRN albuterol, IV methylprednisolone, encouraged HOB, IS parameters, respiratory viral panel obtained and noted to be positive for human metapneumovirus, procalcitonin 0.05. Patient clinically improved however did remained hypoxic on room air therefore patient had oxygenation testing and was noted to be 90% on room air at rest, required 3 L nasal cannula to maintain appropriate saturation while ambulating otherwise 70% when attempts to ambulate on room air only. Discussed importance of continued tobacco cessation and per patient amenability did give her nicotine replacement plan upon discharge. Did encourage patient to consider follow-up with pulmonary medicine with references given at discharge. Patient discharged to home once oxygen set up and improved condition with recommended continued steroid taper, aerosols, as needed albuterol and nebulizer machine. Requested patient follow-up with PCP within 3 to 5 days additionally. DAY OF DISCHARGE PROGRESS NOTE: Subjective: Patient without acute event overnight per self and nursing report. Patient notes she is breathing better and is now coughing up more and it has thinned. She has been up in the room and ambulating without significant difficulty. Patient does require continued oxygenation following oxygenation assessment. Patient denies fever, chills, nausea, emesis, abdominal pain, chest pain. Patient eager for discharge to home and understands that she will need to continue oxygen supplementation until weaned off per physician. Objective: T 98.3, heart rate 90, BP 136/69, respiratory rate 18, 93% on 3 L nasal cannula. Physical Examination: General: awake, alert, oriented x 3 and cooperative, seated upright in PCU bed, eventually was ambulating in the room without marked difficulty, extremely talkative. Skin: normal color, turgor, no icterus, cyanosis. HEENT: AT/NC, EOMI, PERRLA, improved MMM. Lungs: Less diminished, improved air movement, occasional expiratory wheeze, occasional rhonchi but significantly per from day prior, no evidence of distress. Heart: Currently regular rate with regular rhythm, recent aerosol; no gallop, rub audible. Abdomen: soft, obese, NTTP, ND, normal BS. Extremities: no cyanosis, clubbing, or edema. Neurological: patient awake, alert, oriented as noted; cognitive function intact; pupils equally reactive to light and accomodation; cranial nerves II-XII grossly normal, moving all 4 extremities, no focal deficits, strength improving, mildly to moderately global decrease secondary to acute presentation. Psychiatric: affect appears improved, more rested, no acute evidence of depressive or anxiety feelings. Assessment and Plan: Please see hospital summary above. Weight / BMI Weight Weight: 159 lb 2.78 oz Body Mass Index (BMI) 30.0 ABG / Lab / Microbiology Data Result Diagrams: 02/21/21 06:06 02/21/21 06:06 Laboratory: Laboratory Results - last 24 hr 02/21/21 06:06: WBC 19.6 H, RBC 4.66, Hgb 14.5, Hct 43.8, MCV 94.0, MCH 31.1, MCHC 33.1, RDW Std Deviation 46.7 H, RDW Coeff of Lb 13.7, Plt Count 204, MPV 10.1, Immature Gran % (Auto) 0.700, Neut % (Auto) 87.7 H, Lymph % (Auto) 6.3 L, [place] % (Auto) 4.1, Eos % (Auto) 1.0, Baso % (Auto) 0.2, Absolute Neuts (auto) 17.1 H, Absolute Lymphs (auto) 1.24, Nucleated RBC % 0 02/21/21 06:06: Sodium 138, Potassium 4.3, Chloride 101, Carbon Dioxide 31.0, Anion Gap 6, BUN 17, Creatinine 0.83, Estim Creat Clear Calc 63.23, Est GFR (MDRD) Af Amer 95, Est GFR (MDRD) Non-Af 78, BUN/Creatinine Ratio 20.5 H, Glucose 122 H, Calcium 9.4, Total Bilirubin 0.40, AST 18, ALT 21, Alkaline Phosphatase 91, Total Protein 7.2, Albumin 3.2, Globulin 4.0, Albumin/Globulin Ratio 0.8 L Microbiology: Microbiology 02/20/21 07:43 Mucosa - Nasopharyngeal Respiratory Panel (PCR) - Final [place] 02/19/21 23:15 Mucosa - Nose Influenza Types A,B Direct FA (GEGE) - Final 02/19/21 16:13 Interface Orders SARS-CoV-2 Antigen (Rapid) - Final D/C Instructions Discharge Diet: No restrictions Call your doctor if you observe: Fever of 101 or Higher and Shortness of breath Meaningful Use Info Meaningful Use Diagnoses (Choose all that apply): None applicable Discharge Plan Admission Admit Date/Time: 02/19/21 22:05 Primary Reason for Your Visit: Acute Resp Failure, Acute Bronchitis, Acute Human Metapneumovirus Attending Provider: Otilia Muhammad Primary Care Provider: Nilson Frazier Instructions Additional Instructions / Restrictions: Patient Problems: Altered Health Status related to Hospitalization Patient Goals: *Optimal Level of Health *Keep Appointments *Medication Compliance *Remain SafeAcute Hypoxia secondary to Acute Viral Bronchitis with Human metapneumovirus: Please continue your steroid taper, aerosol treatments with as needed albuterol treatments, follow-up with your primary care physician and once you completely resolve recommend pulmonary function testing to assess for underlying lung disease, ie COPD. Please continue to use the nicotine patch for tobacco cessation treatment and de-escalate to the next patch level with your primary care physician. Discharge Orders/Prescriptions Prescriptions: New nicotine 14 mg/24 hr Patch 24 Hour 14 mg transdermal DAILY 14 Days Qty: 14 RF: 0 Mucus Relief ER 1,200 mg Tablet Extended Release 12hr 1,200 mg PO BID 14 Days Qty: 28 RF: 0 ipratropium-albuterol 0.5 mg-3 mg(2.5 mg base)/3 mL Solution For Nebulization 3 ml inhalation Q6H 14 Days Qty: 90 RF: 0 albuterol sulfate 2.5 mg /3 mL (0.083 %) Solution For Nebulization 2.5 mg inhalation Q2H PRN PRN (Reason: Shortness of Breath/Wheezing) 30 Days Qty: 90 RF: 0 prednisone 10 mg tablet See Rx Instructions .ROUTE .COMPLEX Qty: 30 RF: 0 (DME) nebulizers Misc See Rx Instructions .ROUTE .MEDSUPPLY Qty: 1 RF: 0 Continued albuterol sulfate 1 INHALER inhaler 1 - 2 puff INHALATION Q4H PRN PRN (Reason: Wheezing) Qty: 1 RF: 0 metronidazole 500 mg tablet 500 mg PO 4X/DAY RF: 0 doxycycline monohydrate 100 mg capsule 100 mg PO BID RF: 0 pantoprazole 40 mg tablet,delayed release (DR/EC) 40 mg PO DAILY RF: 0 methadone 10 mg/5 mL Solution 110 mg PO DAILY RF: 0 Referrals / Follow Up: Quinton Lipscomb MD [STAFF PHYSICIAN] - (Recommend follow-up evaluation with next open appointment.) Nilson Frazier MD [Primary Care Provider] - (Follow-up within 3-5 days to review admission.) Disposition Disposition (needs filled in before D/C Order can be placed): Home Health Service Charges/Coding Visit Charges Inpatient E&M: 24708 Disch Hosp
--- NOTE | 2021-02-22 09:41 | CASEMGMT ---
Per Javier, PCU charge, pt called in concerned about Nebulizer as she had still not received. Pt had been made aware prior to d/c that nebulizer may not be delivered with O2 but that may need drop shipped. Call to Marylu at [facility] and she states they do have a nebulizer in stock today and has been in contact with pt regarding same but pt requests that they not call/deliver until after 1000 today. Ludin SIEGEL CM
== END 2021-02-21 11:55 | disposition home health service (06) | DRG 202 ==
LOC: ED 21:00 → PCU 22:18
PROVIDERS: Admitting Provider Hospitalist; Emergency Provider Emergency Medicine; PCP Family Medicine; Visit Provider Family Medicine
DX: J20.8 Acute bronchitis due to other specified organisms (principal); J96.01 Acute respiratory failure with hypoxia; B97.81 Human metapneumovirus as the cause of diseases classified elsewhere; B96.81 Helicobacter pylori [H. pylori] as the cause of diseases classified elsewhere; K21.9 Gastro-esophageal reflux disease without esophagitis; E66.9 Obesity, unspecified; F17.210 Nicotine dependence, cigarettes, uncomplicated; Z79.2 Long term (current) use of antibiotics; Z68.30 Body mass index [BMI] 30.0-30.9, adult
CPT/HCPCS: 36415; 71045; 71275; 80048; 80053; 83880; 84145; 84484; 85025; 85379; 87426; 87633; 87635; 87804; 94640; 94667; 94668; 99251; 99284; 99406; J7030; Q9967; U0005; A4216; G0463; U0003

== ENCOUNTER 2021-03-07 15:04 | Emergency (ER) | payer MEDICARE, SELFPAY ==
[2021-03-07 15:05] VITALS: BP 127/107; PULSE 95; RESP 18; TEMP 36.8; O2SAT 95; BMI 30.2
--- NOTE | 2021-03-07 18:27 | EDS_ITS ---
HPI History of Present Illness Chief Complaint: Headache Detail of Chief Complaint: Headache for days Informant: patient Onset/Context/Timing Onset: Days Context: Gradual Timing: Continuous Quality -Headache: Positive for Throbbing and Tightness Location: Initially unilateral not bilateral Current Severity: Severe Maximum Severity: Severe Worsened by: Photophobia, sonophobia Relieved by: Nothing Associated Symptoms/Injury Associated Symptoms: Positive for Nausea, Sinus Pressure and Photophobia; Negative for Fever, Vomiting, Sore Throat, Numbness, Tingling, Preceding Aura, Visual Changes, Blurred Vision and Visual Loss Injury - [place]: Negative for Direct Trauma Narrative Narrative: Patient is a 45-year-old woman with history of migraine headaches who presents with persistent throbbing headache. She complains of photophobia sonophobia. Denies double vision, blurred vision loss of vision. She denies diplopia. She has ringing or ears or decreased hearing. Denies rhinorrhea, congestion postnasal drainage. She denies sore throat. She denies neck pain or neck stiffness. She denies cardiac respiratory symptoms. She does report nausea with occasional vomiting. She denies dysuria, frequency, urgency or hematuria. There is no history of trauma. She has not noted a rash. She denies paresthesia, anesthesia motors. Denies trouble with balance. Prior similar symptoms: Yes Recent Illness/Hospitalization: No PFSH PFSH Medical History Depression H. pylori infection Migraine headache Smoker Medical History no medical history no medical history Home Medications albuterol sulfate 1 - 2 puff INHALATION Q4H PRN PRN #1 inhaler 03/16/17 [Rx Last Taken Unknown] doxycycline monohydrate 100 mg PO BID 02/19/21 [History Last Taken Unknown] metronidazole 500 mg PO 4X/DAY 02/19/21 [History Last Taken Unknown] pantoprazole 40 mg PO DAILY 02/19/21 [History Last Taken Unknown] methadone 110 mg PO DAILY 02/20/21 [History Last Taken Unknown] albuterol sulfate 2.5 mg INHALATION Q2H PRN PRN 30 Days #90 ml 02/21/21 [Rx Last Taken Unknown] guaifenesin [Mucus Relief ER] 1,200 mg PO BID 14 Days #28 tab 02/21/21 [Rx Last Taken Unknown] ipratropium-albuterol 3 ml INHALATION Q6H 14 Days #90 ml 02/21/21 [Rx Last Taken Unknown] nebulizers #1 ea 02/21/21 [Rx Last Taken Unknown] nicotine 14 mg TRANSDERMAL DAILY 14 Days #14 ea 02/21/21 [Rx Last Taken Unknown] prednisone See Rx Instructions .ROUTE .COMPLEX #30 tab 02/21/21 [Rx Last Taken Unknown] Allergy/AdvReac Type Severity Reaction Status Date / Time citalopram hydrobromide AdvReac Vomiting Verified 03/07/21 15:05 [From Celexa] nitrofurantoin AdvReac Diarrhea Verified 03/07/21 15:05 [From Macrobid] nitrofurantoin AdvReac Diarrhea Verified 03/07/21 15:05 macrocrystalline [From Macrobid] sertraline HCl [From Zoloft] AdvReac Vomiting Verified 03/07/21 15:05 sulfamethoxazole AdvReac Diarrhea Verified 03/07/21 15:05 [From Bactrim] trimethoprim [From Bactrim] AdvReac Diarrhea Verified 03/07/21 15:05 Family History Other Heart disease Surgical History H/O shoulder surgery History of cholecystectomy History of surgery on arm Social History (Updated 03/07/21 @ 18:[address] Corby Tello MD) household members: significant other Smoking Status: Current every day smoker tobacco type: cigarettes substance use type: does not use ROS ROS ED Constitutional Constitutional ED: Denies chills, fever(s), subjective, sweats or weight loss Eyes Eyes: Denies blurry vision, change in vision or diplopia ENT ENT ED: Denies ear pain, rhinorrhea or sore throat Cardiovascular Cardiovascular: Denies chest pain or palpitations Respiratory/Chest Respiratory/Chest: Denies cough, dyspnea, dyspnea on exertion or sputum Gastrointestinal Gastrointestinal: Denies abdominal pain, diarrhea, nausea or vomiting Genitourinary Genitourinary ED: Denies dysuria, hematuria or urinary frequency Musculoskeletal Musculoskeletal: Denies arthralgias, back pain, myalgias or neck pain Integumentary Denies rash Neurologic Neurologic: Reports headache(s) and weakness; Denies paresthesias Endocrine Endocrinology: Denies polydipsia, polyphagia or polyuria EXAM Physical Exam Const Vital Signs: 03/07/21 15:05 03/07/21 18:35 Temperature 98.2 F Temperature Source Temporal Pulse Rate 95 93 Respiratory Rate 18 16 Blood Pressure 127/107 H Blood Pressure Mean 113 Pulse Ox 95 96 Oxygen Delivery Method Nasal Cannula Room Air Oxygen Flow Rate (L/min) 2 Positive well nourished, well developed and obese; Negative for cachectic, contractures or unkempt General Appearance ED: well developed; Negative for unkempt, cachectic, contr actures, cyanotic, diaphoretic, NAD or pallor Nutritional Appearance: obese; Negative for cachectic HEENT Reports normocephalic, TM's clear and moist mucous membranes atraumatic; Negative for temporal artery tenderness or vesicular rash Face and Sinus: Negative for sinus tenderness Tympanic Membrane ED: Yes TM's clear Eyes PERRL and EOMs intact bilaterally General Eye ED: Negative for pale conjunctiva or scleral icterus Neck no lymphadenopathy, supple, no meningeal signs and no JVD Resp normal respiratory effort and clear to auscultation bilaterally Cardio regular rate, regular rhythm, S1 normal heart sound, S2 normal heart sound and no murmurs GI non-tender and non-distended Auscultation: normoactive bowel sounds Palpation: soft Back/Spine no CVA tenderness Cervical Spine: Negative for cervical spine tenderness Thoracic Spine / Upper Back: Negative for thoracic spinal tenderness Lumbar Spine / Lower Back: Negative for lumbar spinal tenderness Extremity normal to inspection, full ROM and normal capillary refill Neuro CN's II-XII intact bilaterally and no sensory deficits noted Neuro Narrative: There is no dysmetria. There is no clonus or Babinski sign. Sensorium / Orientation: awake and alert Motor Exam: strength 5/5 throughout Psych mental status grossly normal Appearance: Negative for unkempt Skin General Skin Exam: Negative for jaundice or pallor Lesions: no lesions Rashes: no rashes Nails: normal, Beau's lines and clubbing MDM MDM MDM Narrative Medical decision making narrative: Patient presents with status migraine that is intractable. Will treat with IV fluids, Toradol, Reglan and Benadryl. Patient was reassessed at 2200. Her headache is resolved. She be discharged home with appropriate home-going instructions Discharge Plan Triage Chief Complaint: Headache ED Provider: Corby Tello Dx/Rx/DC Orders Clinical Impression: Intractable migraine without aura and with status migrainosus Instructions: ED, Migraine (Classical) Prescriptions: No Action albuterol sulfate 1 INHALER inhaler 1 - 2 puff INHALATION Q4H PRN PRN (Reason: Wheezing) Qty: 1 RF: 0 metronidazole 500 mg tablet 500 mg PO 4X/DAY RF: 0 doxycycline monohydrate 100 mg capsule 100 mg PO BID RF: 0 pantoprazole 40 mg tablet,delayed release (DR/EC) 40 mg PO DAILY RF: 0 methadone 10 mg/5 mL Solution 110 mg PO DAILY RF: 0 nicotine 14 mg/24 hr Patch 24 Hour 14 mg transdermal DAILY 14 Days Qty: 14 RF: 0 Mucus Relief ER 1,200 mg Tablet Extended Release 12hr 1,200 mg PO BID 14 Days Qty: 28 RF: 0 ipratropium-albuterol 0.5 mg-3 mg(2.5 mg base)/3 mL Solution For Nebulization 3 ml inhalation Q6H 14 Days Qty: 90 RF: 0 albuterol sulfate 2.5 mg /3 mL (0.083 %) Solution For Nebulization 2.5 mg inhalation Q2H PRN PRN (Reason: Shortness of Breath/Wheezing) 30 Days Qty: 90 RF: 0 prednisone 10 mg tablet See Rx Instructions .ROUTE .COMPLEX Qty: 30 RF: 0 (DME) nebulizers Misc See Rx Instructions .ROUTE .MEDSUPPLY Qty: 1 RF: 0 Primary Care Provider: Nilson Frazier Referrals: Nilson Frazier MD [Primary Care Provider] - 3-5 Days Disposition Disposition: Home, Self Care
[2021-03-07] MEDS: Ketorolac 15 MG/ML Vial IV (18:29)
[2021-03-07] MEDS: 0.9% Normal Saline 1,000 ML 999 ML IV (18:29)
[2021-03-07] MEDS: Metoclopramide 10 MG/2 ML Vial IV (18:29)
[2021-03-07] MEDS: DiphenhydrAMINE 50 MG/ML Syringe 25 MG IV (18:34)
[2021-03-07 18:35] VITALS: PULSE 93; RESP 16; O2SAT 96
== END 2021-03-07 22:21 | disposition home or self-care (01) ==
PROVIDERS: Emergency Provider Emergency Medicine; PCP Family Medicine
DX: G43.011 Migraine without aura, intractable, with status migrainosus (principal); F32.A Depression, unspecified; E66.9 Obesity, unspecified; F17.210 Nicotine dependence, cigarettes, uncomplicated; Z79.899 Other long term (current) drug therapy
CPT/HCPCS: 96361; 96374; 96375; 99283; A4216